=== PATIENT | male | born 1990 | race Caucasian/White ===

== ENCOUNTER 2017-08-12 16:55 | Emergency (ER) | payer OTHER ==
[~2017-08-12] VITALS: Ht 167.6 cm; Wt 81.6 kg
[2017-08-12 16:58] VITALS: BP 147/97; Ht 167.6 cm; Wt 81.6 kg
== END 2017-08-12 18:39 | disposition home or self-care (01) ==
LOC: ED 16:55
DX: S63.601A Unspecified sprain of right thumb, initial encounter (principal); R03.0 Elevated blood-pressure reading, without diagnosis of hypertension; W22.8XXA Striking against or struck by other objects, initial encounter; Y93.89 Activity, other specified; Y92.89 Other specified places as the place of occurrence of the external cause; Y99.8 Other external cause status